=== PATIENT | male | born 2000 | race Hispanic/Latino ===

== ENCOUNTER 2018-04-13 04:23 | Emergency (ER) | payer OTHER ==
[2018-04-13 05:23] LABS: Basophils % (Auto) 0.2 % (0.0-1.8); Eosinophils # (Auto) 0.1 K/mm3 (0.0-0.4); Eosinophils % (Auto) 0.4 % (0.0-4.3); Hematocrit 44.3 % (35.5-45.6); Hemoglobin 15.1 gm/dl (11.8-15.2); Lymphocytes % (Auto) 6.6 % (13.4-35.0); Mean Corpuscular HGB Conc 34 % (32-34); Mean Corpuscular Hemoglobin 29 pg (28-32); Mean Corpuscular Volume 85 fl (84-94); Monocytes # (Auto) 0.9 K/mm3 (0.0-0.8); Monocytes % (Auto) 5.9 % (0.0-7.3); Platelet Count 193 K/mm3 (140-440); Red Cell Distribution Width 12.8 % (13.2-15.2)
[2018-04-13 05:46] LABS: Alanine Aminotransferase 48 units/L (7-56); Albumin 4.3 g/dL (3.9-5); BUN/Creatinine Ratio 18; Blood Urea Nitrogen 14 mg/dL (9-20); Hemolysis Index 10; Lipase 22 units/L (13-60)
[2018-04-13] MEDS ORDERED: PEPCID PO ONE (06:52)
[2018-04-13] MEDS ORDERED: TYLENOL PO ONE (06:52)
[2018-04-13] MEDS ORDERED: ZOFRAN ODT PO ONE (06:52)
[2018-04-13] MEDS ORDERED: BENTYL PO ONE (06:52)
[2018-04-13] MEDS ORDERED: CARAFATE PO ONE (06:52)
--- NOTE | 2018-04-13 06:54 | Emergency Department Report ---
ED General Adult HPI - General Chief complaint: Abdominal Pain Stated complaint: ABD PAIN Time Seen by Provider: 04/13/18 06:43 Source: patient, EMS (ems notes not available at time of chart dictation), RN notes reviewed Mode of arrival: Ambulatory Limitations: No Limitations - History of Present Illness Initial comments: This is a 17-year-old male who was previously unknown to this provider. He does not have a primary care doctor, has no chronic medical conditions, and has no history of abdominal surgeries. He presents to the ER with a complaint of burning epigastric discomfort after eating teriyaki chicken. The discomfort is aching and sharp, does not radiate anywhere, does not have exacerbating or relieving factors. He describes multiple episodes of nonbloody, nonbilious vomiting, and nonbloody diarrhea. He reports that he had similar symptoms a few months ago when he consumes teriyaki chicken back then. He denies headache , neck pain, chest pain, lower abdominal pain, testicular pain, urinary symptoms. He also denies drug use. He also denies posterior leg pain, leg swelling, and denies DVT, pulmonary embolus risk factors. In the emergency room , the patient was medicated with supportive medications, he reports complete resolution of his symptoms. -: Gradual Location: abdomen Radiation: non-radiation Quality: burning, aching Consistency: constant Improves with: medication Worsens with: none Associated Symptoms: nausea/vomiting. denies: confusion, chest pain, cough, diaphoresis, fever/chills, headaches, loss of appetite, malaise, rash, seizure, shortness of breath, syncope, weakness - Related Data Previous Rx's Medication Instructions Recorded Last Taken Type Famotidine [Pepcid] 20 mg PO BID #60 tablet 04/13/18 Unknown Rx Ondansetron [Zofran Odt] 4 mg PO Q8HR PRN #20 tab.rapdis 04/13/18 Unknown Rx Allergies Allergy/AdvReac Type Severity Reaction Status Date / Time aspirin Allergy Angioedema Verified 04/13/18 04:26 ED Review of Systems ROS: Stated complaint: ABD PAIN Other details as noted in HPI Comment: All other systems reviewed and negative Constitutional: denies: fever Respiratory: denies: cough Cardiovascular: denies: chest pain Gastrointestinal: abdominal pain, nausea, vomiting, diarrhea. denies: hematemesis, melena, hematochezia Genitourinary: denies: urgency, dysuria, testicular pain ED Past Medical Hx - Past Medical History Previous Medical History?: No - Surgical History Past Surgical History?: No - Social History Smoking Status: Never Smoker - Medications Home Medications: Home Medications Medication Instructions Recorded Confirmed Last Taken Type Famotidine [Pepcid] 20 mg PO BID #60 tablet 04/13/18 Unknown Rx Ondansetron [Zofran Odt] 4 mg PO Q8HR PRN #20 tab.rapdis 04/13/18 Unknown Rx ED Physical Exam - General Limitations: No Limitations General appearance: alert, in no apparent distress - Head Head exam: Present: atraumatic, normocephalic - Eye Eye exam: Present: normal appearance, EOMI. Absent: nystagmus - ENT ENT exam: Present: normal exam, normal orophraynx, mucous membranes moist, normal external ear exam - Neck Neck exam: Present: normal inspection, full ROM - Respiratory Respiratory exam: Present: normal lung sounds bilaterally. Absent: respiratory distress - Cardiovascular Cardiovascular Exam: Present: regular rate, normal rhythm, normal heart sounds. Absent: bradycardia, tachycardia, irregular rhythm, systolic murmur, diastolic murmur, rubs, gallop - GI/Abdominal GI/Abdominal exam: Present: soft, normal bowel sounds. Absent: distended, tenderness, guarding, rebound, rigid, pulsatile mass - Rectal Rectal exam: Present: deferred - Extremities Exam Extremities exam: Present: normal inspection, full ROM, normal capillary refill , other (there is no palpable cord. This negative Homans sign). Absent: pedal edema, joint swelling, calf tenderness - Back Exam Back exam: Present: normal inspection, full ROM. Absent: tenderness, CVA tenderness (R), paraspinal tenderness, vertebral tenderness - Neurological Exam Neurological exam: Present: alert, oriented X3, CN II-XII intact, normal gait, other (Extraocular movements intact. Tongue midline. No facial droop. Facial sensation intact to light touch in the V1, V2, V3 distribution bilaterally. 5 and 5 strength in 4 extremities.. Sensation is intact to light touch in 4 extremities.). Absent: motor sensory deficit - Psychiatric Psychiatric exam: Present: normal affect, normal mood - Skin Skin exam: Present: warm, dry, intact, normal color. Absent: rash ED Course Vital Signs 04/13/18 04/13/18 04/13/18 04:28 06:33 07:00 Temperature 98.4 F Pulse Rate 86 97 H Respiratory 20 16 16 Rate Blood Pressure 125/58 Blood Pressure 121/72 [Left] O2 Sat by Pulse 97 96 98 Oximetry 04/13/18 07:13 Temperature Pulse Rate Respiratory 16 Rate Blood Pressure Blood Pressure [Left] O2 Sat by Pulse Oximetry ED Medical Decision Making - Lab Data Result diagrams: 04/13/18 05:00 04/13/18 05:00 Vital Signs 04/13/18 04/13/18 04/13/18 04:28 06:33 07:00 Temperature 98.4 F Pulse Rate 86 97 H Respiratory 20 16 16 Rate Blood Pressure 125/58 Blood Pressure 121/72 [Left] O2 Sat by Pulse 97 96 98 Oximetry 04/13/18 07:13 Temperature Pulse Rate Respiratory 16 Rate Blood Pressure Blood Pressure [Left] O2 Sat by Pulse Oximetry Lab Results 04/13/18 04/13/18 04/13/18 Range/Units 05:00 05:00 05:00 WBC 15.0 H (4.5-11.0) K/mm3 RBC 5.20 H (3.65-5.03) M/mm3 Hgb 15.1 (11.8-15.2) gm/dl Hct 44.3 (35.5-45.6) % MCV 85 (84-94) fl MCH 29 (28-32) pg MCHC 34 (32-34) % RDW 12.8 L (13.2-15.2) % Plt Count 193 (140-440) K/mm3 Lymph % (Auto) 6.6 L (13.4-35.0) % [place] % (Auto) 5.9 (0.0-7.3) % Eos % (Auto) 0.4 (0.0-4.3) % Baso % (Auto) 0.2 (0.0-1.8) % Lymph # 1.0 L (1.2-5.4) K/mm3 [place] # 0.9 H (0.0-0.8) K/mm3 Eos # 0.1 (0.0-0.4) K/mm3 Baso # 0.0 (0.0-0.1) K/mm3 Seg Neutrophils % 86.9 H (40.0-70.0) % Seg Neutrophils # 13.0 H (1.8-7.7) K/mm3 Sodium 143 (137-145) mmol/L Potassium 4.0 (3.6-5.0) mmol/L Chloride 104.7 (98-107) mmol/L Carbon Dioxide 27 (22-30) mmol/L Anion Gap 15 mmol/L BUN 14 (9-20) mg/dL Creatinine 0.8 (0.8-1.5) mg/dL Estimated GFR > 60 ml/min BUN/Creatinine Ratio 18 % Glucose 162 H (75-100) mg/dL Calcium 9.0 (8.4-10.2) mg/dL Total Bilirubin 1.10 (0.1-1.2) mg/dL AST 82 H (5-40) units/L ALT 48 (7-56) units/L Alkaline Phosphatase 135 H (35-129) units/L Total Protein 7.0 (6.3-8.2) g/dL Albumin 4.3 (3.9-5) g/dL Albumin/Globulin Ratio 1.6 % Lipase 22 (13-60) units/L Salicylates 3.7 (2.8-20.0) mg/dL Acetaminophen (10.0-30.0) ug/mL Plasma/Serum Alcohol (0-0.07) % 04/13/18 04/13/18 Range/Units 05:00 05:00 WBC (4.5-11.0) K/mm3 RBC (3.65-5.03) M/mm3 Hgb (11.8-15.2) gm/dl Hct (35.5-45.6) % MCV (84-94) fl MCH (28-32) pg MCHC (32-34) % RDW (13.2-15.2) % Plt Count (140-440) K/mm3 Lymph % (Auto) (13.4-35.0) % [place] % (Auto) (0.0-7.3) % Eos % (Auto) (0.0-4.3) % Baso % (Auto) (0.0-1.8) % Lymph # (1.2-5.4) K/mm3 [place] # (0.0-0.8) K/mm3 Eos # (0.0-0.4) K/mm3 Baso # (0.0-0.1) K/mm3 Seg Neutrophils % (40.0-70.0) % Seg Neutrophils # (1.8-7.7) K/mm3 Sodium (137-145) mmol/L Potassium (3.6-5.0) mmol/L Chloride (98-107) mmol/L Carbon Dioxide (22-30) mmol/L Anion Gap mmol/L BUN (9-20) mg/dL Creatinine (0.8-1.5) mg/dL Estimated GFR ml/min BUN/Creatinine Ratio % Glucose (75-100) mg/dL Calcium (8.4-10.2) mg/dL Total Bilirubin (0.1-1.2) mg/dL AST (5-40) units/L ALT (7-56) units/L Alkaline Phosphatase (35-129) units/L Total Protein (6.3-8.2) g/dL Albumin (3.9-5) g/dL Albumin/Globulin Ratio % Lipase (13-60) units/L Salicylates (2.8-20.0) mg/dL Acetaminophen < 5.0 L (10.0-30.0) ug/mL Plasma/Serum Alcohol < 0.01 (0-0.07) % - EKG Data -: EKG Interpreted by Tn EKG shows normal: sinus rhythm, axis, intervals, QRS complexes, ST-T waves - Radiology Data Radiology results: report reviewed, image reviewed X-ray of the chest, interpreted by radiology and myself, no acute disease - Medical Decision Making Differential diagnosis, including but not limited to: GERD, gastritis, gastroenteritis, hiatal hernia, pneumonia Assessment and plan: 17-year-old male with recurrent episode of nausea, vomiting , diarrhea after teriyaki chicken consumption. He has no lower abdominal pain or tenderness, no testicular pain, and no urinary symptoms. He has no DVT or pulmonary embolus risk factors, he is low risk by well's criteria, as the patient is perc negative. The abdomen is soft and benign, with no rebound, guarding or peritoneal signs. The patient is medicated supportively, and endorses dramatic improvement in his symptoms. On multiple re-evaluations, the patient is noted be to be talking to his friends in an animated fashion, smiling, and playing on a cellular phone. There does not appear to be an emergent condition at this time, based on the objective information, my physical exam and history, the patient does not require advanced imaging, diet and lifestyle modifications were reviewed. Critical care attestation.: If time is entered above; I have spent that time in minutes in the direct care of this critically ill patient, excluding procedure time. ED Disposition Clinical Impression: Epigastric abdominal pain Disposition: TO HOME OR SELFCARE Is pt being admited?: No Does the pt Need Aspirin: No Condition: Good Instructions: Acute Nausea and Vomiting (ED) Additional Instructions: Avoid consumption of heavy, spicy foods, Motrin, Naprosyn, Aleve, ibuprofen, alcohol, caffeinated beverages. Take the prescription medications as needed/ directed. Follow up with a primary care doctor within the next 7-10 days. Return to the ER right away with new pain, worsened pain, migration of pain, fevers, chills, lethargy, irritability, confusion, change in mental status, or new, worsening or different symptoms. Referrals: PRIMARY CARE, [Primary Care Provider] - 3-5 Days HUSSAIN MCDOWELL MD [Staff Physician] - 3-5 Days
[2018-04-13 07:03] VITALS: BP 121/72
--- NOTE | 2018-04-13 07:22 | XRay Report ---
FINAL REPORT EXAM: XR CHEST ROUTINE 2V HISTORY: epigastric pain TECHNIQUE: PA and lateral chest radiographs PRIORS: None. FINDINGS: No mediastinal shift. Cardiac silhouette is not enlarged. No pneumothorax, effusion, or focal pulmonary opacity. No acute skeletal finding. IMPRESSION: No focal pulmonary opacity.
== END 2018-04-13 08:26 | disposition home or self-care (01) ==
LOC: ED 04:23
DX: R10.13 Epigastric pain (principal); R11.2 Nausea with vomiting, unspecified; R19.7 Diarrhea, unspecified; Z88.6 Allergy status to analgesic agent
CPT/HCPCS: 36415; 71046; 80053; 83690; 85025; 93005; 93010; 99284; G0480; 80320; Q0162